=== PATIENT | female | born 1995 | race Caucasian/White ===

== ENCOUNTER 2019-09-11 15:08 | Emergency (ER) | payer OTHER ==
[~2019-09-11] VITALS: Ht 167.6 cm; Wt 92.1 kg
[2019-09-11 16:35] VITALS: BP 108/79; Ht 167.6 cm; Wt 92.1 kg
== END 2019-09-11 18:34 | disposition left against medical advice (07) ==
LOC: ED 15:08
DX: Z53.21 Procedure and treatment not carried out due to patient leaving prior to being seen by health care provider (principal)

== ENCOUNTER 2019-09-12 15:04 | Emergency (ER) | payer OTHER ==
[~2019-09-12] VITALS: Ht 167.6 cm; Wt 93.9 kg
[2019-09-12 15:10] VITALS: Ht 167.6 cm; Wt 93.9 kg
[2019-09-12 17:16] VITALS: BP 121/76
== END 2019-09-12 17:16 | disposition home or self-care (01) ==
LOC: ED 15:04
DX: S09.90XD Unspecified injury of head, subsequent encounter (principal); Z76.0 Encounter for issue of repeat prescription; X58.XXXD Exposure to other specified factors, subsequent encounter